=== PATIENT | female | born 1985 | race Caucasian/White ===

== ENCOUNTER 2016-11-29 16:26 | Emergency (ER) | payer MEDICAID ==
[2016-11-29] MEDS ORDERED: KETOROLAC 60 MG/2 ML VIAL IM ONE (17:38)
[2016-11-29] MEDS ORDERED: ORPHENADRINE 60 MG/2 ML AMP ONE (17:38)
== END 2016-11-29 19:08 | disposition home or self-care (01) ==
LOC: ER 16:26
DX: S46.911A Strain of unspecified muscle, fascia and tendon at shoulder and upper arm level, right arm, initial encounter (principal)
CPT/HCPCS: 72050; 96372